=== PATIENT | female | born 1935 | race Caucasian/White ===

== ENCOUNTER 2016-06-26 07:14 | Inpatient (IN) | payer OTHER ==
[2016-06-26] VITALS (14 sets, daily range): BP systolic 150–179; BP diastolic 63–76
[~2016-06-26] VITALS: Ht 165.1 cm; Wt 66.8 kg
[~2016-06-26 07:14] MED LIST: ALEVE220 M2 PO; AMLODIPINE BES2.5 MG PO; ASPIR 8181 M1 PO; ATORVASTATIN CA40 MG PO; BYSTOLIC10 MG PO; CRESTOR10 MG PO; DOXAZOSIN MESYLA2 MG PO; EMLA 30 GM30 GM TP; EX-LAX15 MG PO; FOLBEE PLUS TABL5 M1 PO; FOLBEE TABLET1 EACH PO; FOSRENOL500 MG PO; LEVOTHYROXINE88 MCG PO; LIDOCAINE-PRIL1 EACH TP; LO-DOSE ASPIRIN81 M1 PO; METOPROLOL TART50 MG PO; NITROSTAT0.4 MG SL; NORVASC2.5 MG PO; OXYGEN MC; PLAVIX75 MG PO; PROBIOTIC1 EAC1 PO; PROBIOTIC250 MG PO; RENVELA800 MG PO; SIMVASTATIN20 MG PO; TUMS PO; TUMS500 MG PO; Tums PO
[2016-06-26 08:15] LABS: INTER. NORMALIZED RATIO 1.1; PROTHROMBIN TIME 11.4 (9.2-11.2)
[2016-06-26 08:28] LABS: ANION GAP 15 MEQ/L (2-14); CHLORIDE 96 MEQ/L (99-109); POTASSIUM 4.6 MEQ/L (3.7-5.4); SAMPLE HEMOLYSIS CHECK 0; SAMPLE ICTERIC CHECK 0; SAMPLE LIPEMIA CHECK 0; SODIUM 139 MEQ/L (136-147)
[2016-06-26 08:33] LABS: GFR ESTIMATE (CALCULATED) 6 mL/min/; GLUCOSE 100 mg/dL (70-99); UREA NITROGEN (BUN) 61 mg/dL (9-23)
[2016-06-26] MEDS ORDERED: RENAPLEX D PO ×2 (08:36→10:08)
[2016-06-26 08:57] LABS: EOSINOPHIL (%) 0.7 % (0-5); EOSINOPHIL COUNT 0.1 K/uL (0-0.3); HEMATOCRIT 31.9 % (36.0-46.0); IMMATURE GRANULOCYTE (%) 0.1 % (0.0-0.7); IMMATURE GRANULOCYTE COUNT 0.1 K/uL; LYMPHOCYTE COUNT 0.6 K/uL (1.0-2.8); MCH 30.7 PG (29.0-34.0); MCV 98.8 FL (83-99); MONOCYTE (%) 6.4 % (3-12); MONOCYTE COUNT 0.5 K/uL (0-0.8); NEUTROPHIL (%) 83.8 % (45-76); NEUTROPHIL COUNT 6.2 K/uL (1.8-6.4); RBC DIS.WIDTH-CV 16.9 % (11.8-14.6); RBC DIS.WIDTH-SD 58.2 % (39-53); RED BLOOD COUNT 3.23 M/uL (3.80-5.20); WHITE BLOOD COUNT 7.4 K/uL (4.1-10.2)
[2016-06-26 09:07] LABS: PLAT.SUFFICIENCY DECREASED; PLATELET COUNT 2 K/uL (156-360); USER ID MCB
[2016-06-26 10:15] LABS: TOTAL BILIRUBIN 0.7 mg/dL (0.0-1.0)
[2016-06-26 10:16] LABS: ALKALINE PHOSPHATASE 131 IU/L (3-129)
[2016-06-26 10:18] LABS: DIRECT BILIRUBIN 0.4 mg/dL (0.0-0.3)
[2016-06-26 10:23] LABS: ABS NEUTROPHIL COUNT 6.62; ANISOCYTOSIS 1+; MACROCYTES OCC
[2016-06-26 12:23] LABS: HEMATOCRIT 31.3 % (36.0-46.0); MCH 30.8 PG (29.0-34.0); MCV 99.4 FL (83-99); RBC DIS.WIDTH-SD 58.5 % (39-53); RED BLOOD COUNT 3.15 M/uL (3.80-5.20); WHITE BLOOD COUNT 7.4 K/uL (4.1-10.2)
[2016-06-26 12:56] LABS: LACTATE DEHYDROGENASE 176 IU/L (20-246)
[2016-06-26 13:51] LABS: PLATELET COUNT 6 K/uL (156-360)
[2016-06-27 00:34] VITALS: BP 168/72
[2016-06-27 04:13] VITALS: BP 133/63
[2016-06-27 07:29] LABS: ALKALINE PHOSPHATASE 108 IU/L (3-129); ANION GAP 15 MEQ/L (2-14); CHLORIDE 91 MEQ/L (99-109); GFR ESTIMATE (CALCULATED) 5 mL/min/; GLUCOSE 147 mg/dL (70-99); SAMPLE HEMOLYSIS CHECK 0; SAMPLE ICTERIC CHECK 0; SAMPLE LIPEMIA CHECK 0; SODIUM 134 MEQ/L (136-147); TOTAL BILIRUBIN 0.6 MG/DL (0.0-1.0); UREA NITROGEN (BUN) 73 mg/dL (9-23)
[2016-06-27 07:32] LABS: POTASSIUM 5.6 MEQ/L (3.7-5.4)
[2016-06-27 07:37] LABS: EOSINOPHIL (%) 0 % (0-5); HEMATOCRIT 27.7 % (36.0-46.0); IMMATURE GRANULOCYTE (%) 0.2 % (0.0-0.7); LYMPHOCYTE COUNT 0.3 K/uL (1.0-2.8); MCHC 31.8 G/DL (30.0-36.0); MCV 97.5 FL (83-99); MEAN PLAT.VOLUME 11.1 uM^3 (9.5-12.4); MONOCYTE (%) 0.7 % (3-12); NEUTROPHIL (%) 93.2 % (45-76); NEUTROPHIL COUNT 4.3 K/uL (1.8-6.4); RBC DIS.WIDTH-CV 17.2 % (11.8-14.6); RBC DIS.WIDTH-SD 61.6 % (39-53); RED BLOOD COUNT 2.84 M/uL (3.80-5.20)
[2016-06-27 07:42] LABS: PLATELET COUNT 50 K/uL (156-360); WHITE BLOOD COUNT 4.6 K/uL (4.1-10.2)
[2016-06-27 07:45] LABS: USER ID BLP
[2016-06-27 07:46] VITALS: BP 139/62
[2016-06-27 10:43] LABS: HBSG INDEX 0.14; HPCA INDEX 0.23
[2016-06-27 10:44] LABS: ANTI-HEPATITIS A VIRUS (IGM) Nonreactive; HAV INDEX 0.21
[2016-06-27 10:45] LABS: ANTI-HEPATITIS B CORE (IGM) Nonreactive; HBC IgM INDEX 0.09
[2016-06-27 12:08] LABS: ANISOCYTOSIS 1+; HYPOCHROMASIA 3+; MACROCYTES OCC; MICROCYTOSIS OCC; PLAT.SUFFICIENCY DECREASED; SPHEROCYTES OCC
[2016-06-27 16:11] VITALS: BP 132/60
[2016-06-27 19:21] VITALS: BP 137/57
[2016-06-28 00:14] VITALS: BP 127/63
[2016-06-28 04:17] VITALS: BP 134/67
[2016-06-28 07:11] LABS: ANION GAP 9 MEQ/L (2-14); CHLORIDE 97 MEQ/L (99-109); SAMPLE HEMOLYSIS CHECK 0; SAMPLE ICTERIC CHECK 0; SAMPLE LIPEMIA CHECK 0; SODIUM 137 MEQ/L (136-147); UREA NITROGEN (BUN) 46 mg/dL (9-23)
[2016-06-28 07:14] LABS: GFR ESTIMATE (CALCULATED) 8 mL/min/; GLUCOSE 93 mg/dL (70-99); POTASSIUM 4.3 MEQ/L (3.7-5.4)
[2016-06-28 07:25] LABS: EOSINOPHIL (%) 0.6 % (0-5); IMMATURE GRANULOCYTE (%) 0.3 % (0.0-0.7); LYMPHOCYTE COUNT 0.9 K/uL (1.0-2.8); MCH 30.4 PG (29.0-34.0); MCHC 30.7 G/DL (30.0-36.0); MCV 98.9 FL (83-99); MONOCYTE (%) 7.4 % (3-12); MONOCYTE COUNT 0.5 K/uL (0-0.8); NEUTROPHIL (%) 76.7 % (45-76); NEUTROPHIL COUNT 4.8 K/uL (1.8-6.4); RBC DIS.WIDTH-CV 17.3 % (11.8-14.6); RBC DIS.WIDTH-SD 62.5 % (39-53); RED BLOOD COUNT 2.83 M/uL (3.80-5.20)
[2016-06-28 07:27] LABS: WHITE BLOOD COUNT 6.2 K/uL (4.1-10.2)
[2016-06-28 07:33] LABS: PLAT.SUFFICIENCY DECREASED; PLATELET COUNT 39 K/uL (156-360); USER ID CL
[2016-06-28 07:34] VITALS: BP 128/66
[2016-06-28 07:41] LABS: MEAN PLAT.VOLUME 14.4 uM^3 (9.5-12.4)
[2016-06-28 07:54] LABS: ABS NEUTROPHIL COUNT 5.03; ANISOCYTOSIS OCC; MACROCYTES OCC
[2016-06-28 14:12] LABS: Heparin Induced Plt Ab Negative (Negative)
[2016-06-28 15:49] VITALS: BP 146/64
[2016-06-28 19:41] VITALS: BP 130/65
[2016-06-29 00:08] VITALS: BP 134/71
[2016-06-29 04:09] VITALS: BP 132/74
[2016-06-29 07:40] LABS: DELETE MACHINE DIFF? YES
[2016-06-29 07:48] LABS: ANION GAP 10 MEQ/L (2-14); CHLORIDE 97 MEQ/L (99-109); GFR ESTIMATE (CALCULATED) 10 mL/min/; GLUCOSE 76 mg/dL (70-99); POTASSIUM 4.3 MEQ/L (3.7-5.4); SAMPLE HEMOLYSIS CHECK 0; SAMPLE ICTERIC CHECK 0; SAMPLE LIPEMIA CHECK 0; SODIUM 138 MEQ/L (136-147); UREA NITROGEN (BUN) 32 mg/dL (9-23)
[2016-06-29 07:53] VITALS: BP 145/54
[2016-06-29 08:24] LABS: ABS NEUTROPHIL COUNT 4.12; ANISOCYTOSIS OCC; EOSINOPHIL ABS CT 0.06; HEMATOCRIT 28.5 % (36.0-46.0); MACROCYTES OCC; MCH 30.4 PG (29.0-34.0); MCHC 30.5 G/DL (30.0-36.0); MCV 99.7 FL (83-99); PLAT.SUFFICIENCY DECREASED; PLATELET COUNT 50 K/uL (156-360); POLYCHROMASIA OCC; RBC DIS.WIDTH-CV 17.2 % (11.8-14.6); RBC DIS.WIDTH-SD 62.8 % (39-53); RED BLOOD COUNT 2.86 M/uL (3.80-5.20); USER ID CCL; WHITE BLOOD COUNT 5.7 K/uL (4.1-10.2)
[2016-06-29] MEDS ORDERED: PREDNISONE10 MG PO (11:43)
[2016-06-29 12:00] VITALS: BP 148/62
[2016-06-29 17:09] LABS: UFH SRA Result Negative (Negative)
[2016-06-30 14:12] LABS: Flow Number of Markers 22 (()); Flow Spec Viability 97 % (()); Flow Specimen Type BONE MARROW (())
== END 2016-06-29 16:04 | disposition home or self-care (01) | DRG 813 ==
LOC: EME 07:14 → 5SOUTH 11:45 → EDOF 11:45 → 5SOUTH 12:53
PROVIDERS: Emergency Medicine; Internal Medicine; Internal Medicine Hematology & Oncology; Internal Medicine Nephrology
PROC: 30233R1 Transfusion of Nonautologous Platelets into Peripheral Vein, Percutaneous Approach (ICD-10-PCS; principal; 2016-06-26)
PROC: 07DR3ZX Extraction of Iliac Bone Marrow, Percutaneous Approach, Diagnostic (ICD-10-PCS; 2016-06-28)
DX: D69.6 Thrombocytopenia, unspecified (principal); N18.6 End stage renal disease; I12.0 Hypertensive chronic kidney disease with stage 5 chronic kidney disease or end stage renal disease; I50.32 Chronic diastolic (congestive) heart failure; E87.5 Hyperkalemia; R04.0 Epistaxis; I25.10 Atherosclerotic heart disease of native coronary artery without angina pectoris; R09.02 Hypoxemia; D64.9 Anemia, unspecified; Z95.2 Presence of prosthetic heart valve; E03.9 Hypothyroidism, unspecified; G43.909 Migraine, unspecified, not intractable, without status migrainosus; K44.9 Diaphragmatic hernia without obstruction or gangrene; E78.5 Hyperlipidemia, unspecified; Z79.01 Long term (current) use of anticoagulants; Z99.2 Dependence on renal dialysis; Z95.5 Presence of coronary angioplasty implant and graft
CPT/HCPCS: 77012; 80048; 80053; 80074; 80076; 82607; 82746; 82948; 83615; 85007; 85025; 85025 91; 85027; 85060; 85610; 85999; 86022 90; 86850; 86900; 86901; 88184 90; 88185 90; 88189 90; 94799; 99281; 99285; J0881; J1200; J1568; J2405; J2930; J3010; J7512; P9035

== ENCOUNTER 2016-07-31 09:00 | Inpatient (IN) | payer OTHER ==
[~2016-07-31] VITALS: Ht 165.1 cm; Wt 66.8 kg
[~2016-07-31 09:00] MED LIST changes: +PREDNISONE10 MG PO; +RENAPLEX D PO
[2016-07-31 09:45] LABS: HEMATOCRIT 34.2 % (36.0-46.0); MCHC 30.4 G/DL (30.0-36.0); MCV 98.6 FL (83-99); MEAN PLAT.VOLUME 13.1 uM^3 (9.5-12.4); PLATELET COUNT 125 K/uL (156-360); RBC DIS.WIDTH-CV 17.4 % (11.8-14.6); RBC DIS.WIDTH-SD 63.2 % (39-53); RED BLOOD COUNT 3.47 M/uL (3.80-5.20); WHITE BLOOD COUNT 7.6 K/uL (4.1-10.2)
[2016-07-31 10:13] LABS: CHLORIDE 95 mEq/L (99-109); POTASSIUM 4.6 mEq/L (3.7-5.4); SODIUM 140 mEq/L (136-147)
[2016-07-31 10:15] LABS: GLUCOSE 98 mg/dL (70-99)
[2016-07-31 10:16] LABS: ANION GAP 15 MEQ/L (2-14)
[2016-07-31 10:17] LABS: TOTAL BILIRUBIN 0.7 mg/dL (0.0-1.0)
[2016-07-31 10:18] LABS: ALKALINE PHOSPHATASE 119 IU/L (3-129)
[2016-07-31 10:19] LABS: GFR ESTIMATE (CALCULATED) 6 mL/min/
[2016-07-31 10:20] LABS: UREA NITROGEN (BUN) 70 mg/dL (9-23)
[2016-07-31 10:58] LABS: LIPASE 34 U/L (1.0-51.0)
[2016-07-31 12:31] LABS: ADD MIUA? YES; BILIRUBIN NEGATIVE; BLOOD SMALL; COLOR YELLOW ((YELLOW)); GLUCOSE (STRIP) NEGATIVE; KETONES NEGATIVE; LEUKOCYTES LARGE; NITRITE NEGATIVE; PROTEIN (STRIP) 100; SPECIFIC GRAVITY 1.009 (1.000-1.030); UROBILINOGEN 0.2 MG/DL (0.2-1.0)
[2016-07-31 12:50] LABS: BACTERIA RARE /HPF; EPITHELIAL CELLS 2+ /HPF; MUCUS TRACE /LPF; RED BLOOD CELLS 0-5 /HPF (0-5); UCUL ADDED? NO; WHITE BLOOD CELLS 30-40 /HPF (0-5)
[2016-07-31] MEDS ORDERED: PROTONIX40 MG PO (13:44)
[2016-07-31] MEDS ORDERED: LIDOCAINE-PRIL1 EACH TP (13:49)
[2016-07-31] MEDS ORDERED: PREDNISONE20 MG PO (13:51)
[2016-07-31] MEDS ORDERED: VITAMIN D2000 UNIT PO (13:52)
[2016-07-31 20:49] VITALS: BP 157/67
[2016-07-31 22:46] VITALS: BP 131/60
[2016-08-01 06:23] LABS: HEMATOCRIT 32.3 % (36.0-46.0); MCH 30.6 PG (29.0-34.0); MCV 98.8 FL (83-99); MEAN PLAT.VOLUME 12.8 uM^3 (9.5-12.4); NRBC (%) 0.3 /100 WBC (0-0); PLATELET COUNT 92 K/uL (156-360); RBC DIS.WIDTH-CV 17.5 % (11.8-14.6); RBC DIS.WIDTH-SD 63.2 % (39-53); RED BLOOD COUNT 3.27 M/uL (3.80-5.20); WHITE BLOOD COUNT 6.5 K/uL (4.1-10.2)
[2016-08-01 06:50] LABS: ANION GAP 11 MEQ/L (2-14); CHLORIDE 99 MEQ/L (99-109); GLUCOSE 73 mg/dL (70-99); POTASSIUM 3.9 MEQ/L (3.7-5.4); SAMPLE HEMOLYSIS CHECK 0; SAMPLE ICTERIC CHECK 0; SAMPLE LIPEMIA CHECK 0; SODIUM 142 MEQ/L (136-147)
[2016-08-01 06:52] VITALS: BP 121/57
[2016-08-01 06:54] LABS: GFR ESTIMATE (CALCULATED) 11 mL/min/; UREA NITROGEN (BUN) 29 mg/dL (9-23)
[2016-08-01 15:25] VITALS: BP 113/54
[2016-08-01 23:19] VITALS: BP 143/67
[2016-08-02 07:05] VITALS: BP 118/61
[2016-08-02 08:42] LABS: ANION GAP 12 MEQ/L (2-14); CHLORIDE 102 MEQ/L (99-109); GFR ESTIMATE (CALCULATED) 8 mL/min/; POTASSIUM 3.9 MEQ/L (3.7-5.4); SAMPLE HEMOLYSIS CHECK 0; SAMPLE ICTERIC CHECK 0; SAMPLE LIPEMIA CHECK 0; SODIUM 141 MEQ/L (136-147); UREA NITROGEN (BUN) 39 mg/dL (9-23)
[2016-08-02 08:49] LABS: GLUCOSE 174 mg/dL (70-99)
[2016-08-02 09:05] LABS: EOSINOPHIL (%) 0.2 % (0-5); HEMATOCRIT 29.5 % (36.0-46.0); IMMATURE GRANULOCYTE (%) 1.8 % (0.0-0.7); IMMATURE GRANULOCYTE COUNT 0.2 K/uL; LYMPHOCYTE COUNT 0.7 K/uL (1.0-2.8); MCH 29.8 PG (29.0-34.0); MCHC 29.8 G/DL (30.0-36.0); MEAN PLAT.VOLUME 13.2 uM^3 (9.5-12.4); MONOCYTE (%) 5.1 % (3-12); MONOCYTE COUNT 0.4 K/uL (0-0.8); NEUTROPHIL (%) 84.9 % (45-76); PLATELET COUNT 116 K/uL (156-360); RBC DIS.WIDTH-CV 17.5 % (11.8-14.6); RBC DIS.WIDTH-SD 64.3 % (39-53); RED BLOOD COUNT 2.95 M/uL (3.80-5.20); WHITE BLOOD COUNT 8.3 K/uL (4.1-10.2)
[2016-08-02 15:28] VITALS: BP 120/79
[2016-08-03 00:17] VITALS: BP 137/63
[2016-08-03 06:49] LABS: ANION GAP 11 MEQ/L (2-14); CHLORIDE 104 MEQ/L (99-109); GFR ESTIMATE (CALCULATED) 12 mL/min/; GLUCOSE 81 mg/dL (70-99); SAMPLE HEMOLYSIS CHECK 0; SAMPLE ICTERIC CHECK 0; SAMPLE LIPEMIA CHECK 0; SODIUM 144 MEQ/L (136-147); UREA NITROGEN (BUN) 22 mg/dL (9-23)
[2016-08-03 06:57] VITALS: BP 139/62
[2016-08-03 07:13] LABS: HEMATOCRIT 30.6 % (36.0-46.0); MCH 30.1 PG (29.0-34.0); MCHC 29.7 G/DL (30.0-36.0); MCV 101.3 FL (83-99); MEAN PLAT.VOLUME 13.2 uM^3 (9.5-12.4); NRBC (%) 0.2 /100 WBC (0-0); PLATELET COUNT 107 K/uL (156-360); RBC DIS.WIDTH-CV 17.7 % (11.8-14.6); RBC DIS.WIDTH-SD 65.8 % (39-53); RED BLOOD COUNT 3.02 M/uL (3.80-5.20); WHITE BLOOD COUNT 8.2 K/uL (4.1-10.2)
[2016-08-03 08:52] VITALS: BP 130/61
[2016-08-03 15:02] VITALS: BP 159/69
[2016-08-03 22:27] VITALS: BP 152/67
[2016-08-04 06:01] LABS: HEMATOCRIT 30.8 % (36.0-46.0); MCH 30.4 PG (29.0-34.0); MCHC 29.9 G/DL (30.0-36.0); MCV 101.7 FL (83-99); MEAN PLAT.VOLUME 12.8 uM^3 (9.5-12.4); NRBC (%) 0.4 /100 WBC (0-0); PLATELET COUNT 104 K/uL (156-360); RBC DIS.WIDTH-CV 17.7 % (11.8-14.6); RBC DIS.WIDTH-SD 66.4 % (39-53); RED BLOOD COUNT 3.03 M/uL (3.80-5.20); WHITE BLOOD COUNT 7.9 K/uL (4.1-10.2)
[2016-08-04 06:26] LABS: ANION GAP 12 MEQ/L (2-14); CHLORIDE 101 MEQ/L (99-109); GFR ESTIMATE (CALCULATED) 9 mL/min/; GLUCOSE 84 mg/dL (70-99); POTASSIUM 4.4 MEQ/L (3.7-5.4); SAMPLE HEMOLYSIS CHECK 0; SAMPLE ICTERIC CHECK 0; SAMPLE LIPEMIA CHECK 0; SODIUM 143 MEQ/L (136-147); UREA NITROGEN (BUN) 31 mg/dL (9-23)
[2016-08-04] MEDS ORDERED: CIPROFLOXACIN250 MG PO (09:04)
[2016-08-04] MEDS ORDERED: METRONIDAZOLE500 MG PO (09:04)
[2016-08-04 11:12] VITALS: BP 148/67
== END 2016-08-04 12:33 | disposition home or self-care (01) | DRG 391 ==
LOC: EME 09:00 → 5EAST 13:51 → EDOF 13:51 → 5EAST 20:40
PROVIDERS: Hospitalist
PROC: 5A1D60Z (ICD-10-PCS; principal; 2016-07-31)
DX: K57.20 Diverticulitis of large intestine with perforation and abscess without bleeding (principal); N18.6 End stage renal disease; D69.3 Immune thrombocytopenic purpura; N39.0 Urinary tract infection, site not specified; I12.0 Hypertensive chronic kidney disease with stage 5 chronic kidney disease or end stage renal disease; E78.5 Hyperlipidemia, unspecified; I25.10 Atherosclerotic heart disease of native coronary artery without angina pectoris; D63.8 Anemia in other chronic diseases classified elsewhere; Z88.2 Allergy status to sulfonamides; Z95.2 Presence of prosthetic heart valve; E03.9 Hypothyroidism, unspecified
CPT/HCPCS: 49406; 72192; 74176; 80048; 80053; 81003; 83690; 85025; 85027; 87070; 87075; 87076; 87086; 87185; 87205; 99281; 99285; C1729; C1769; J1644; J1956; J2543; J3010; J7030; J7050; J7512; S0030

== ENCOUNTER 2016-11-07 07:15 | Day surgery (SDC) | payer OTHER ==
[~2016-11-07] VITALS: Ht 165.1 cm; Wt 64.0 kg
[~2016-11-07 07:15] MED LIST changes: +CIPROFLOXACIN250 MG PO; +LEVO-T100 MCG PO; +LO-DOSE ASPIRIN81 M2 PO; +METRONIDAZOLE500 MG PO; +PREDNISONE20 MG PO; +PROTONIX40 MG PO; +VITAMIN D2000 UNIT PO
[2016-11-07 09:18] LABS: METH RESISTANT S AUREUS PCR NEGATIVE (NEGATIVE)
[2016-11-07 09:23] LABS: PROBE CHECK PASS; SPECIMEN PROCESSING CONTROL PASS
== END 2016-11-07 09:35 | disposition home or self-care (01) ==
LOC: CATH 07:15
PROVIDERS: Surgery
PROC: 05763ZZ Dilation of Left Subclavian Vein, Percutaneous Approach (ICD-10-PCS; principal; 2016-11-07)
DX: T82.858A Stenosis of other vascular prosthetic devices, implants and grafts, initial encounter (principal); I87.1 Compression of vein; I12.0 Hypertensive chronic kidney disease with stage 5 chronic kidney disease or end stage renal disease; N18.6 End stage renal disease; Z99.2 Dependence on renal dialysis; E07.9 Disorder of thyroid, unspecified; Z79.02 Long term (current) use of antithrombotics/antiplatelets; Z79.82 Long term (current) use of aspirin; Z88.2 Allergy status to sulfonamides; Y83.2 Surgical operation with anastomosis, bypass or graft as the cause of abnormal reaction of the patient, or of later complication, without mention of misadventure at the time of the procedure
CPT/HCPCS: 87641; C1725; C1769; C1894; J1644; J2250; J3010

== ENCOUNTER 2017-01-24 08:36 | Emergency (ER) | payer OTHER ==
[~2017-01-24] VITALS: Ht 165.1 cm; Wt 62.1 kg
[2017-01-24 09:34] LABS: EOSINOPHIL (%) 1.2 % (0-5); EOSINOPHIL COUNT 0.1 K/uL (0-0.3); HEMATOCRIT 34.2 % (36.0-46.0); IMMATURE GRANULOCYTE (%) 0.3 % (0.0-0.7); INSTRUMENT ABS NEUTROPHIL CT 4.7 K/uL; LYMPHOCYTE COUNT 0.7 K/uL (1.0-2.8); MCH 30.7 PG (29.0-34.0); MCV 99.1 FL (83-99); MEAN PLAT.VOLUME 12.5 uM^3 (9.5-12.4); MONOCYTE (%) 8.7 % (3-12); MONOCYTE COUNT 0.5 K/uL (0-0.8); NEUTROPHIL (%) 77.7 % (45-76); NEUTROPHIL COUNT 4.7 K/uL (1.8-6.4); PLATELET COUNT 84 K/uL (156-360); RBC DIS.WIDTH-CV 14.9 % (11.8-14.6); RBC DIS.WIDTH-SD 54.1 % (39-53); RED BLOOD COUNT 3.45 M/uL (3.80-5.20)
[2017-01-24 09:46] LABS: CHLORIDE 101 mEq/L (99-109); POTASSIUM 5.5 mEq/L (3.7-5.4); SODIUM 140 mEq/L (136-147)
[2017-01-24 09:48] LABS: GLUCOSE 88 mg/dL (70-99)
[2017-01-24 09:49] LABS: ANION GAP 15 MEQ/L (2-14)
[2017-01-24 09:52] LABS: GFR ESTIMATE (CALCULATED) 4 mL/min/; UREA NITROGEN (BUN) 80 mg/dL (9-23)
[2017-01-24 11:42] VITALS: BP 146/70
[2017-01-24 11:47] LABS: C DIFF TOXIN NEGATIVE (NEGATIVE)
[2017-01-24 11:50] LABS: INTERNAL CONTROL VALID? YES; PROBE CHECK PASS; SPECIMEN PROCESSING CONTROL PASS
== END 2017-01-24 11:44 | disposition home or self-care (01) ==
LOC: EME 08:36
PROVIDERS: Emergency Medicine
DX: R19.7 Diarrhea, unspecified (principal); I12.0 Hypertensive chronic kidney disease with stage 5 chronic kidney disease or end stage renal disease; N18.6 End stage renal disease; Z99.2 Dependence on renal dialysis; Z87.442 Personal history of urinary calculi; Z95.2 Presence of prosthetic heart valve; Z95.811 Presence of heart assist device; Z79.82 Long term (current) use of aspirin; Z87.891 Personal history of nicotine dependence
CPT/HCPCS: 80048; 83630; 85025; 87493; 99281; 99284

== ENCOUNTER 2017-03-08 07:50 | Day surgery (SDC) | payer OTHER ==
[~2017-03-08] VITALS: Ht 165.1 cm; Wt 58.0 kg
[2017-03-08 09:40] LABS: METH RESISTANT S AUREUS PCR NEGATIVE (NEGATIVE); PROBE CHECK PASS; SPECIMEN PROCESSING CONTROL PASS
== END 2017-03-08 09:40 | disposition home or self-care (01) ==
LOC: CATH 07:50
PROVIDERS: Surgery
DX: T82.858A Stenosis of other vascular prosthetic devices, implants and grafts, initial encounter (principal); Z88.2 Allergy status to sulfonamides; Z79.02 Long term (current) use of antithrombotics/antiplatelets; I12.0 Hypertensive chronic kidney disease with stage 5 chronic kidney disease or end stage renal disease; N18.6 End stage renal disease; Z99.2 Dependence on renal dialysis; E07.9 Disorder of thyroid, unspecified
CPT/HCPCS: 87641; C1725; C1769; C1874; C1894; J1644; J2250; J3010

== ENCOUNTER 2017-06-10 08:16 | Emergency (ER) | payer OTHER ==
[~2017-06-10] VITALS: Ht 165.1 cm; Wt 59.0 kg
[2017-06-10 10:08] LABS: HEMATOCRIT 33.4 % (36.0-46.0); MCHC 29.9 G/DL (30.0-36.0); MCV 96.8 FL (83-99); PLATELET COUNT 82 K/uL (156-360); RBC DIS.WIDTH-CV 16.8 % (11.8-14.6); RBC DIS.WIDTH-SD 57.2 % (39-53); RED BLOOD COUNT 3.45 M/uL (3.80-5.20); WHITE BLOOD COUNT 7.6 K/uL (4.1-10.2)
[2017-06-10 10:16] LABS: CHLORIDE 94 mEq/L (99-109); POTASSIUM 4.6 mEq/L (3.7-5.4); SODIUM 140 mEq/L (136-147)
[2017-06-10 10:18] LABS: GLUCOSE 92 mg/dL (70-99)
[2017-06-10 10:22] LABS: CREATININE 5.9 mg/dL (0.6-1.3); GFR ESTIMATE (CALCULATED) 7 mL/min/
[2017-06-10 10:23] LABS: UREA NITROGEN (BUN) 44 mg/dL (9-23)
[2017-06-10] MEDS ORDERED: ZITHROMAX Z-PA250 MG PO (13:54)
[2017-06-10] MEDS ORDERED: NORCO 5/3251 TABLET PO (13:55)
[2017-06-10 15:30] VITALS: BP 97/53
== END 2017-06-10 16:15 | disposition home or self-care (01) ==
LOC: EME 08:16
PROVIDERS: Physician Assistant
PROC: 0HQFXZZ Repair Right Hand Skin, External Approach (ICD-10-PCS; principal; 2017-06-10)
DX: J18.9 Pneumonia, unspecified organism (principal); S42.292A Other displaced fracture of upper end of left humerus, initial encounter for closed fracture; S61.011A Laceration without foreign body of right thumb without damage to nail, initial encounter; S00.03XA Contusion of scalp, initial encounter; W01.10XA Fall on same level from slipping, tripping and stumbling with subsequent striking against unspecified object, initial encounter; Y93.01 Activity, walking, marching and hiking; Y92.009 Unspecified place in unspecified non-institutional (private) residence as the place of occurrence of the external cause; I73.9 Peripheral vascular disease, unspecified; I12.9 Hypertensive chronic kidney disease with stage 1 through stage 4 chronic kidney disease, or unspecified chronic kidney disease; N18.9 Chronic kidney disease, unspecified; Z87.442 Personal history of urinary calculi; Z87.891 Personal history of nicotine dependence; Z88.2 Allergy status to sulfonamides; Z95.2 Presence of prosthetic heart valve; Z95.5 Presence of coronary angioplasty implant and graft; Z99.2 Dependence on renal dialysis; Z99.81 Dependence on supplemental oxygen
CPT/HCPCS: 70450; 71045; 73030; 80048; 81003; 85027; J0696

== ENCOUNTER 2017-06-17 13:12 | Inpatient (IN) | payer OTHER ==
[~2017-06-17] VITALS: Ht 165.1 cm; Wt 61.9 kg
[~2017-06-17 13:12] MED LIST changes: +NORCO 5/3251 TABLET PO; +ZITHROMAX Z-PA250 MG PO
[2017-06-17 13:54] LABS: BASE EXCESS 5.6 mEq/L (-3 to +3); BICARBONATE 29.8 mEq/L (22-26); CARBOXY HGB 2.2 % (0-5); METHEMOGLOBIN 0.4 % (0-1.5); PCO2 41 mm Hg (35-45); PO2 62 mm Hg (80-100); pH 7.47 (7.35-7.45)
[2017-06-17 13:55] LABS: COMMENTS - BLOOD GASES A+C+; SITE RR; TOTAL RESP RATE 20 resp/min
[2017-06-17 14:10] LABS: BASOPHIL (%) 0.4 % (0-1); EOSINOPHIL (%) 1.1 % (0-5); EOSINOPHIL COUNT 0.1 K/uL (0-0.3); HEMATOCRIT 37.3 % (36.0-46.0); HEMOGLOBIN 11.3 G/DL (11.9-15.5); IMMATURE GRANULOCYTE (%) 0.5 % (0.0-0.7); LYMPHOCYTE (%) 6.6 % (15-42); LYMPHOCYTE COUNT 0.5 K/uL (1.0-2.8); MCH 29.4 PG (29.0-34.0); MCHC 30.3 G/DL (30.0-36.0); MCV 96.9 FL (83-99); MONOCYTE (%) 4.9 % (3-12); MONOCYTE COUNT 0.4 K/uL (0-0.8); NEUTROPHIL (%) 86.5 % (45-76); NEUTROPHIL COUNT 6.4 K/uL (1.8-6.4); NRBC (%) 0.4 /100 WBC (0-0); RBC DIS.WIDTH-CV 17.8 % (11.8-14.6); RBC DIS.WIDTH-SD 61.6 % (39-53); RED BLOOD COUNT 3.85 M/uL (3.80-5.20); WHITE BLOOD COUNT 7.4 K/uL (4.1-10.2)
[2017-06-17 14:20] LABS: ALBUMIN 3.2 g/dL (3.2-4.8)
[2017-06-17 14:21] LABS: CHLORIDE 94 mEq/L (99-109); POTASSIUM 4.1 mEq/L (3.7-5.4); SODIUM 140 mEq/L (136-147)
[2017-06-17 14:22] LABS: PLATELET COUNT 159 K/uL (156-360)
[2017-06-17 14:23] LABS: GLUCOSE 100 mg/dL (70-99); TOTAL PROTEIN 6.7 g/dL (6.4-8.3)
[2017-06-17 14:25] LABS: TOTAL BILIRUBIN 0.7 mg/dL (0.0-1.0)
[2017-06-17 14:26] LABS: ALKALINE PHOSPHATASE 161 IU/L (3-129); INTER. NORMALIZED RATIO 2.9
[2017-06-17 14:27] LABS: CREATININE 5.5 mg/dL (0.6-1.3); GFR ESTIMATE (CALCULATED) 8 mL/min/
[2017-06-17 14:28] LABS: AST (GOT) 18 IU/L (2-34); UREA NITROGEN (BUN) 43 mg/dL (9-23)
[2017-06-17 14:30] LABS: ALT (GPT) 15 IU/L (3-49)
[2017-06-17 14:33] LABS: TROP-I INTERPRETATION NEGATIVE; TROPONIN-I 0.07 ng/mL (0.0-0.30)
[2017-06-17] MEDS ORDERED: MEGESTROL PO (16:37)
[2017-06-17] MEDS ORDERED: PANTOPRAZOLE SO40 MG PO (16:38)
[2017-06-17] MEDS ORDERED: PROBIOTIC1 EAC1 PO (16:39)
[2017-06-17] MEDS ORDERED: WARFARIN SODIU2.5 MG PO (16:42)
[2017-06-17] MEDS ORDERED: BACLOFEN10 MG PO (16:42)
[2017-06-17] MEDS ORDERED: ROBITUSSIN DM118 ML PO (16:44)
[2017-06-17] MEDS ORDERED: MEGACE40 MG PO (17:57)
[2017-06-17 18:15] VITALS: BP 138/68
[2017-06-17 20:19] VITALS: BP 151/93
[2017-06-17 23:59] VITALS: BP 127/72
[2017-06-18 04:27] VITALS: BP 134/61
[2017-06-18 06:59] LABS: HEMATOCRIT 36.5 % (36.0-46.0); HEMOGLOBIN 10.8 G/DL (11.9-15.5); MCH 28.6 PG (29.0-34.0); MCHC 29.6 G/DL (30.0-36.0); MCV 96.6 FL (83-99); NRBC (%) 0.7 /100 WBC (0-0); PLATELET COUNT 144 K/uL (156-360); RBC DIS.WIDTH-CV 17.9 % (11.8-14.6); RBC DIS.WIDTH-SD 61.1 % (39-53); RED BLOOD COUNT 3.78 M/uL (3.80-5.20); WHITE BLOOD COUNT 7.1 K/uL (4.1-10.2)
[2017-06-18 07:13] LABS: CHLORIDE 97 MEQ/L (99-109); GFR ESTIMATE (CALCULATED) 7 mL/min/; GLUCOSE 95 mg/dL (70-99); POTASSIUM 4.6 MEQ/L (3.7-5.4); SODIUM 141 MEQ/L (136-147); UREA NITROGEN (BUN) 46 mg/dL (9-23)
[2017-06-18 08:00] VITALS: BP 130/64
[2017-06-18 15:30] VITALS: BP 122/60
[2017-06-19 00:16] VITALS: BP 112/69
[2017-06-19 04:24] VITALS: BP 121/57
[2017-06-19 07:00] LABS: HEMATOCRIT 37.1 % (36.0-46.0); MCH 28.8 PG (29.0-34.0); MCHC 29.6 G/DL (30.0-36.0); MCV 97.1 FL (83-99); NRBC (%) 0.8 /100 WBC (0-0); PLATELET COUNT 128 K/uL (156-360); RBC DIS.WIDTH-CV 18.3 % (11.8-14.6); RBC DIS.WIDTH-SD 62.1 % (39-53); RED BLOOD COUNT 3.82 M/uL (3.80-5.20); WHITE BLOOD COUNT 6.4 K/uL (4.1-10.2)
[2017-06-19 07:15] LABS: INTER. NORMALIZED RATIO 8.6
[2017-06-19 07:20] VITALS: BP 118/64
[2017-06-19 11:32] VITALS: BP 112/55
[2017-06-19 15:47] VITALS: BP 138/59
[2017-06-19 20:19] VITALS: BP 93/52
[2017-06-20 01:03] VITALS: BP 126/65
[2017-06-20 06:36] LABS: INTER. NORMALIZED RATIO 1.5
[2017-06-20 06:40] VITALS: BP 100/62
[2017-06-20 08:15] LABS: CHLORIDE 100 MEQ/L (99-109); CREATININE 5.2 MG/DL (0.6-1.3); GFR ESTIMATE (CALCULATED) 8 mL/min/; GLUCOSE 105 mg/dL (70-99); POTASSIUM 4.1 MEQ/L (3.7-5.4); SODIUM 143 MEQ/L (136-147); UREA NITROGEN (BUN) 30 mg/dL (9-23)
[2017-06-20 08:21] LABS: HEMATOCRIT 37.8 % (36.0-46.0); HEMOGLOBIN 11.2 G/DL (11.9-15.5); MCH 29.4 PG (29.0-34.0); MCHC 29.6 G/DL (30.0-36.0); MCV 99.2 FL (83-99); NRBC (%) 0.6 /100 WBC (0-0); PLATELET COUNT 122 K/uL (156-360); RBC DIS.WIDTH-CV 18.8 % (11.8-14.6); RBC DIS.WIDTH-SD 65.1 % (39-53); RED BLOOD COUNT 3.81 M/uL (3.80-5.20); WHITE BLOOD COUNT 7.1 K/uL (4.1-10.2)
[2017-06-20 15:40] VITALS: BP 106/65
[2017-06-20 23:24] VITALS: BP 115/57
[2017-06-21 06:46] LABS: INTER. NORMALIZED RATIO 1.5
[2017-06-21 07:54] VITALS: BP 122/71
[2017-06-21 16:28] VITALS: BP 127/60
[2017-06-21 20:10] VITALS: BP 137/74
[2017-06-22 00:23] VITALS: BP 132/58
[2017-06-22 04:13] VITALS: BP 130/59
[2017-06-22 08:34] LABS: BASOPHIL (%) 0.5 % (0-1); EOSINOPHIL (%) 1.8 % (0-5); EOSINOPHIL COUNT 0.2 K/uL (0-0.3); HEMATOCRIT 34.1 % (36.0-46.0); HEMOGLOBIN 10.2 G/DL (11.9-15.5); IMMATURE GRANULOCYTE (%) 0.5 % (0.0-0.7); LYMPHOCYTE (%) 8.2 % (15-42); LYMPHOCYTE COUNT 0.7 K/uL (1.0-2.8); MCH 29.1 PG (29.0-34.0); MCHC 29.9 G/DL (30.0-36.0); MCV 97.2 FL (83-99); MONOCYTE (%) 6.5 % (3-12); MONOCYTE COUNT 0.6 K/uL (0-0.8); NEUTROPHIL (%) 82.5 % (45-76); NEUTROPHIL COUNT 7.1 K/uL (1.8-6.4); NRBC (%) 0.2 /100 WBC (0-0); PLATELET COUNT 100 K/uL (156-360); RBC DIS.WIDTH-CV 18.7 % (11.8-14.6); RBC DIS.WIDTH-SD 64.5 % (39-53); RED BLOOD COUNT 3.51 M/uL (3.80-5.20); WHITE BLOOD COUNT 8.6 K/uL (4.1-10.2)
[2017-06-22 08:39] LABS: INTER. NORMALIZED RATIO 1.5
[2017-06-22 08:49] LABS: ALBUMIN 2.6 G/DL (3.2-4.8); CHLORIDE 97 MEQ/L (99-109); POTASSIUM 3.4 MEQ/L (3.7-5.4); SODIUM 140 MEQ/L (136-147)
[2017-06-22 08:54] LABS: CREATININE 4.7 MG/DL (0.6-1.3); GFR ESTIMATE (CALCULATED) 9 mL/min/; GLUCOSE 133 mg/dL (70-99); PHOSPHORUS 4.1 mg/dL (2.5-4.9); UREA NITROGEN (BUN) 26 mg/dL (9-23)
[2017-06-22 12:50] VITALS: BP 122/74
[2017-06-22 15:55] VITALS: BP 142/81
[2017-06-22] MEDS ORDERED: AMOX TR-K CLV1 EAC3 PO (16:16)
[2017-06-22] MEDS ORDERED: TRAMADOL HCL50 MG PO (16:16)
[2017-06-22] MEDS ORDERED: DOCUSATE SODIU100 MG PO (16:16)
[2017-06-22 20:20] VITALS: BP 158/68
[2017-06-23 00:21] VITALS: BP 148/65
[2017-06-23 06:52] LABS: INTER. NORMALIZED RATIO 1.5
[2017-06-23 08:38] VITALS: BP 100/60
[2017-06-23 16:47] VITALS: BP 124/60
[2017-06-23 23:15] VITALS: BP 119/51
[2017-06-24 06:54] LABS: INTER. NORMALIZED RATIO 1.5
[2017-06-24 08:27] VITALS: BP 127/74
[2017-06-24 16:35] VITALS: BP 130/63
[2017-06-24 23:33] VITALS: BP 115/56
[2017-06-25 06:48] VITALS: BP 121/59
[2017-06-25 07:24] LABS: INTER. NORMALIZED RATIO 1.7
[2017-06-25 15:40] VITALS: BP 137/64
[2017-06-25 23:17] VITALS: BP 126/63
[2017-06-26 07:00] VITALS: BP 131/60
[2017-06-26 07:03] LABS: INTER. NORMALIZED RATIO 1.9
[2017-06-26] MEDS ORDERED: ATIVAN INTE2 MG/1 ML PO (10:01)
[2017-06-26] MEDS ORDERED: HYOSCYAMINE0.125 M2 PO (10:01)
[2017-06-26] MEDS ORDERED: MORPHINE CON20 MG/M1 PO (10:01)
[2017-06-26] MEDS ORDERED: DOCUSATE SODIU100 MG PO (11:04)
[2017-06-26] MEDS ORDERED: ATIVAN0.5 MG PO (11:58)
[2017-06-26 13:10] VITALS: BP 134/74
== END 2017-06-26 13:18 | disposition hospice, home (50) | DRG 177 ==
LOC: EME 13:12 → EDOF 15:35 → 5EAST 15:35 → ENRESERV 15:36 → 5EAST 17:30
PROVIDERS: Emergency Medicine; Internal Medicine; Internal Medicine Nephrology; Physician Assistant Medical
PROC: 5A1D70Z Performance of Urinary Filtration, Intermittent, Less than 6 Hours Per Day (ICD-10-PCS; principal; 2017-06-18)
DX: J69.0 Pneumonitis due to inhalation of food and vomit (principal); G93.41 Metabolic encephalopathy; I12.0 Hypertensive chronic kidney disease with stage 5 chronic kidney disease or end stage renal disease; N18.6 End stage renal disease; I27.20 Pulmonary hypertension, unspecified; I48.91 Unspecified atrial fibrillation; I05.0 Rheumatic mitral stenosis; D69.3 Immune thrombocytopenic purpura; J44.9 Chronic obstructive pulmonary disease, unspecified; R79.1 Abnormal coagulation profile; J98.11 Atelectasis; F03.90 Unspecified dementia, unspecified severity, without behavioral disturbance, psychotic disturbance, mood disturbance, and anxiety; I25.10 Atherosclerotic heart disease of native coronary artery without angina pectoris; E78.00 Pure hypercholesterolemia, unspecified; E03.9 Hypothyroidism, unspecified; R29.6 Repeated falls; Z66 Do not resuscitate; Z99.81 Dependence on supplemental oxygen; S42.202D Unspecified fracture of upper end of left humerus, subsequent encounter for fracture with routine healing; Z91.81 History of falling; Z99.2 Dependence on renal dialysis; Z95.3 Presence of xenogenic heart valve; Z95.5 Presence of coronary angioplasty implant and graft; Z79.01 Long term (current) use of anticoagulants; Z79.82 Long term (current) use of aspirin; Z87.442 Personal history of urinary calculi; Z87.891 Personal history of nicotine dependence; Z88.2 Allergy status to sulfonamides
CPT/HCPCS: 36600; 70551; 71045; 71250; 73030; 80048; 80053; 80069; 80202; 81003; 82272; 82803; 82948; 83605; 84439; 84443; 84484; 85025; 85027; 85610; 86850; 86900; 86901; 87040; 87086; 87449; 87493; 87502; 87641; 92526 GN; 92610 GN; 93005; 93306; 94799; 97530 GP; 99281; 99285; J0295; J0692; J2270; J3370; J3430; J7042; J7050